=== PATIENT | female | born 1975 | race Caucasian/White ===

== ENCOUNTER 2021-04-30 13:28 | Emergency (ER) | payer BC ==
[~2021-04-30] VITALS: Ht 162.6 cm; Wt 95.3 kg
[~2021-04-30 13:28] MED LIST: ALBUTEROL; BACTRIM DS TAB1 EACH PO; CIPROFLOXACIN500 M1 PO; FLEXERIL PO; HYDROCODONE-AP1 EAC6 PO; NAPROSYN500 MG PO; NOHOMEMEDICATIONS; NORCO 5-325 TA1 EACH PO; PENICILLIN VK500 M1 PO; PRILOSEC20 MG; PYRIDIUM200 MG PO; VENTOLIN HFA 1818 GM INH; VICODIN 5-5001 EACH PO
[2021-04-30 14:27] LABS: URINE BILIRUBIN NEGATIVE (Negative); URINE BLOOD 3+ (Negative); URINE CLARITY CLEAR; URINE COLOR YELLOW; URINE GLUCOSE-RANDOM NEGATIVE (Negative); URINE KETONES NEGATIVE (Negative); URINE NITRITE-REFLEX NEGATIVE (Negative); URINE PROTEIN 1+ (Negative); URINE UROBILINOGEN 0.2 E.U./dl (0.2-1.0)
[2021-04-30 14:50] LABS: URINE LEUKOCYTES-REFLEX 2+ (Negative)
[2021-04-30 15:04] LABS: CASTS None Seen /LPF (None Seen); CRYSTALS None Seen /LPF (None Seen); MUCUS None Seen strn/LPF (None Seen); SQUAMOUS >10 Many /LPF (0-3); URINE WBC-REFLEX >25 Many /HPF (0-5)
[2021-04-30 15:05] LABS: BACTERIA-REFLEX None Seen /HPF (None Seen); URINE RBC 3-10 Few /HPF (0-2); WBC CLUMPS Few (None Seen)
[2021-04-30] MEDS ORDERED: LEVOFLOXACIN500 MG PO (15:28)
[2021-04-30] MEDS ORDERED: PHENAZOPYRIDIN200 M2 PO (15:28)
[2021-04-30 15:36] VITALS: BP 140/64
== END 2021-04-30 16:10 | disposition home or self-care (01) ==
LOC: M.ERS 13:28
PROVIDERS: Family Medicine
DX: N39.0 Urinary tract infection, site not specified (principal); J45.909 Unspecified asthma, uncomplicated; Z95.5 Presence of coronary angioplasty implant and graft; Z98.51 Tubal ligation status; Z79.899 Other long term (current) drug therapy